=== PATIENT | female | born 1990 | race Caucasian/White ===

== ENCOUNTER 2018-02-13 23:43 | Emergency (ER) | payer BC ==
[~2018-02-13] VITALS: Ht 175.3 cm; Wt 86.4 kg
[2018-02-13 23:57] VITALS: Ht 175.3 cm; Wt 86.4 kg
[2018-02-13] MEDS ORDERED: VOLTAREN75 MG PO (23:58)
[2018-02-14 01:13] LABS: BASOPHILS 0.2 % (0-2); EOSINOPHILS 2.5 % (0-7); HEMATOCRIT 37.8 % (36.0-48.0); HEMOGLOBIN 13.6 g/dL (12-16); IMMATURE GRANULOCYTES 0.2 % (0-5); LYMPHOCYTES 24.3 % (15-50); MCH 34.3 pg (26.0-34.0); MCV 95.5 fL (80.0-100.0); MONOCYTES 9.5 % (2-11); NEUTROPHILS 63.3 % (40-80); PLATELET COUNT 162 10x3/uL (130-400); RBC 3.96 10x6/uL (4.00-5.40); RDW 11.8 % (11.5-14.5); WBC 4.8 10x3/uL (4.8-10.8)
[2018-02-14 01:27] LABS: ALBUMIN 3.6 g/dL (3.4-5.0); ALKALINE PHOSPHATASE 34 U/L (46-116); ALT (SGPT) 39 U/L (10-68); BILIRUBIN - TOTAL 0.43 mg/dL (0.2-1.3); CALC OSMOLALITY 284 mosm/kg (275-300); CALCIUM 8.8 mg/dL (8.5-10.1); CARBON DIOXIDE 23.1 mmol/L (21.0-32.0); CHLORIDE - SERUM 109 mmol/L (98-107); CREATININE - SERUM 0.9 mg/dL (0.6-1.3); GLUCOSE 110 mg/dL (74-106); PROTEIN - SERUM 6.9 g/dL (6.4-8.2); SODIUM 142 mmol/L (136-145); UREA NITROGEN 15 mg/dL (7-18); eGFR NON AFRICAN AMERICAN 79 mL/min (90-120)
[2018-02-14] MEDS ORDERED: ATIVAN1 MG PO (02:31)
[2018-02-14] MEDS ORDERED: K-DUR20 MEQ PO (02:31)
[2018-02-14] MEDS ORDERED: ANTIVERT12.5 MG PO (02:31)
[2018-02-14 04:02] VITALS: BP 94/54
== END 2018-02-14 04:04 | disposition home or self-care (01) ==
LOC: D.ER 23:43
PROVIDERS: Emergency Medicine
DX: R51 Headache (principal); R11.10 Vomiting, unspecified; K52.9 Noninfective gastroenteritis and colitis, unspecified; E87.6 Hypokalemia; R42 Dizziness and giddiness

== ENCOUNTER 2018-04-21 08:04 | Emergency (ER) | payer BC ==
[~2018-04-21] VITALS: Ht 175.3 cm; Wt 75.0 kg
[~2018-04-21 08:04] MED LIST: ANTIVERT12.5 MG PO; ATIVAN1 MG PO; K-DUR20 MEQ PO; VOLTAREN75 MG PO
[2018-04-21 08:08] VITALS: Ht 175.3 cm; Wt 75.0 kg
[2018-04-21] MEDS ORDERED: TIVICAY50 MG PO (08:10)
[2018-04-21] MEDS ORDERED: XIFAXAN550 MG PO (08:11)
[2018-04-21] MEDS ORDERED: BENTYL 20 MG TA20 MG PO (08:11)
[2018-04-21] MEDS ORDERED: TRUVADA 200 MG1 EACH PO (08:12)
[2018-04-21] MEDS ORDERED: NICODERM PATCH (08:12)
[2018-04-21] MEDS ORDERED: DEPO-PROVERA (08:12)
[2018-04-21] MEDS ORDERED: BACTRIM 400-801 TAB PO (08:13)
[2018-04-21 09:00] LABS: BASOPHILS 0.3 % (0-2); HEMATOCRIT 39.3 % (36.0-48.0); HEMOGLOBIN 13.8 g/dL (12-16); IMMATURE GRANULOCYTES 0.3 % (0-5); LYMPHOCYTES 6.8 % (15-50); MCH 34.1 pg (26.0-34.0); MCHC 35.1 g/dL (31.0-37.0); MEAN PLATELET VOLUME 10.9 fL (7.4-10.4); MONOCYTES 6.5 % (2-11); NEUTROPHILS 85.1 % (40-80); PLATELET COUNT 151 10x3/uL (130-400); RBC 4.05 10x6/uL (4.00-5.40); WBC 3.1 10x3/uL (4.8-10.8)
[2018-04-21 09:03] LABS: APPEARANCE CLEAR (CLEAR); BILIRUBIN NEGATIVE (NEGATIVE); COLOR YELLOW (YELLOW); GLUCOSE NEGATIVE (NEGATIVE); KETONE NEGATIVE (NEGATIVE); NITRITE NEGATIVE (NEGATIVE); PROTEIN NEGATIVE (NEGATIVE); SPECIFIC GRAVITY 1.005 (1.005-1.020); UROBILINOGEN NORMAL (NORMAL)
[2018-04-21 09:09] LABS: INR 1.2 (0.85-1.17); PROTIME 14.7 SECONDS (11.6-15.0)
[2018-04-21 09:26] LABS: ALBUMIN 3.8 g/dL (3.4-5.0); ALKALINE PHOSPHATASE 47 U/L (46-116); ALT (SGPT) 49 U/L (10-68); BILIRUBIN - TOTAL 0.53 mg/dL (0.2-1.3); CALC OSMOLALITY 274 mosm/kg (275-300); CALCIUM 8.6 mg/dL (8.5-10.1); CARBON DIOXIDE 22.9 mmol/L (21.0-32.0); CHLORIDE - SERUM 104 mmol/L (98-107); GLUCOSE 89 mg/dL (74-106); POTASSIUM - SERUM 3.3 mmol/L (3.5-5.1); PROTEIN - SERUM 7.3 g/dL (6.4-8.2); SODIUM 139 mmol/L (136-145); UREA NITROGEN 6 mg/dL (7-18); eGFR NON AFRICAN AMERICAN 70 mL/min (90-120)
[2018-04-21 09:29] LABS: CKMB 0.2 U/L (0.0-3.6); CREATINE KINASE 93 UL (21-215)
[2018-04-21 09:33] LABS: TROPONIN-I < 0.017 ng/mL (0.000-0.060)
[2018-04-21 10:08] VITALS: BP 122/54
== END 2018-04-21 10:08 | disposition home or self-care (01) ==
LOC: D.ER 08:04
PROVIDERS: Emergency Medicine
DX: B34.9 Viral infection, unspecified (principal); R50.2 Drug induced fever; T50.905A Adverse effect of unspecified drugs, medicaments and biological substances, initial encounter; Y92.89 Other specified places as the place of occurrence of the external cause; F17.200 Nicotine dependence, unspecified, uncomplicated